=== PATIENT | female | born 1965 ===

== ENCOUNTER → 2019-01-07 20:04 | Outpatient (REF) | payer OTHER, SELFPAY ==
[2019-01-07 21:15] LABS: Rubella Antibody IgG 2.3 IU/mL (>15)
== END ==
LOC: LAB 20:04
PROVIDERS: Visit Provider Nurse Practitioner Acute Care
DX: Z01.84 Encounter for antibody response examination (principal)
CPT/HCPCS: 86735; 86762; 86765